=== PATIENT | female | born 1955 | race Caucasian/White ===

== ENCOUNTER 2017-03-08 09:53 | Inpatient (IN) | payer MEDICAID, OTHER ==
[~2017-03-08] VITALS: Ht 152.4 cm; Wt 86.7 kg
[2017-03-08] MEDS ORDERED: AMLO2.5T PO (10:50)
[2017-03-08] MEDS ORDERED: CETI10 PO (10:50)
[2017-03-08] MEDS ORDERED: LOVA20TA PO (10:50)
[2017-03-08] MEDS ORDERED: TERA2CAP3 PO (10:50)
[2017-03-08] MEDS ORDERED: BISO10TA2 PO (10:50)
[2017-03-19] VITALS (10 sets, daily range): BP systolic 154–160; BP diastolic 84–90; PULSE 59–78; RESP 16–18; TEMP 97.7–98.4; O2SAT 94–99
[2017-03-19] MEDS ORDERED: HEPARIN SODIUM - SQ 10,000 UNITS/ML VIAL ONE (07:05)
[2017-03-19] MEDS ORDERED: THROMBIN (TOPICAL) 20,000 UNIT SPRAY KIT ONE (07:05)
[2017-03-19] MEDS ORDERED: HEPARIN SODIUM - IV 10,000 UNITS/10 ML VIAL ONE (07:05)
[2017-03-19] MEDS ORDERED: PROTAMINE SULFATE 50 MG/5 ML VIAL ONE (07:06)
[2017-03-19] MEDS ORDERED: ceFAZolin 2 GM PREMIX 50 ML ONE (07:06)
[2017-03-19] MEDS ORDERED: INSULIN HUMAN REGULAR 1,000 UNITS/10 ML VIAL SQ PRN (07:15)
[2017-03-19] MEDS ORDERED: CHLORHEXIDINE GLUCONATE 2 % 1 PACK (2 CLOTHS) TOPICAL PRN (07:15)
[2017-03-19] MEDS ORDERED: LACTATED RINGER'S 1000 ML IV PRN (07:15)
[2017-03-19] MEDS ORDERED: SODIUM CHLORID 0.9% 500 ML IV PRN (07:15)
[2017-03-19] MEDS ORDERED: METOPROLOL TARTRATE 25 MG TAB PO PRN (07:15)
[2017-03-19] MEDS ORDERED: POVIDONE IODINE 5% (ANTISEPSIS KIT) 4 APPLICATIONS EACH NARE PRN (07:15)
[2017-03-19] MEDS ORDERED: COEN1CAP10 PO (07:21)
[2017-03-19] MEDS ORDERED: POTA99TA PO (07:21)
[2017-03-19] MEDS ORDERED: MULTCAP PO (07:21)
[2017-03-19] MEDS ORDERED: MAGN250T3 PO (07:21)
--- NOTE | 2017-03-19 08:07 | PD.VS.PN ---
Pre-operative Note Pre-operative diagnosis: L LE rest pain, PAD Planned procedure: L groin reconstruction, angiogram/stents Interval History: Pt has been feeling well since I saw her in clinic. No F/C/N/V Labs: Hct 41 plt 185 cr 0.8 Blood: T&S Imaging: to be made in OR Orders: NPO Ancef 2g IV OCTOR Post-operative destination: PACU, [facility] Operative site marked: Yes Consent: Informed consent has been obtained from Dunia Moran. I have explained the procedure in detail and discussed the risks, benefits, and potential complications. All questions have been answered. Iam Messina MD March 19, 2017 08:07
[2017-03-19] MEDS ORDERED: FAMOTIDINE 20 MG/2 ML VIAL ONE (08:12)
[2017-03-19] MEDS ORDERED: MIDAZOLAM HCL 2 MG/2 ML VIAL ONE (08:12)
[2017-03-19] MEDS ORDERED: IOHEXOL 300 MG/ML 50 ML BTL (for RAD DIAG) OTHER ONE (09:26)
--- NOTE | 2017-03-19 11:12 | HHI.PR ---
Immediate Post Op Note Procedure Date: March 19, 2017 Pre Op Diagnosis: PAD, L LE rest pain Post Op Diagnosis: PAD, L LE rest pain Surgeon: Iam Messina Equipment Operator [employer] Yard(s): none Procedure: L iliofemoral endarterectomy w/ patch angioplasty Aortogram Findings: very diseased [employer]UR[employer]ER, occluded SFA but 2 patent profundas no HD significant iliac inflow lesions Complications: none Specimen(s) removed: none for pathology Estimated blood loss: 100mL Anesthesia: General Drains: None Fluids: 1200mL x'oid; 300 mL UOP IVF Patient to: PACU Patient Condition: Good Implant/Devices: SEE IMPLANT LOG (if applicable) Date/Time of Procedure: SEE SURGICAL CARE RECORD Iam Messina MD March 19, 2017 11:12
[2017-03-19] MEDS ORDERED: MORPHINE SULFATE 4 MG/ML INJ IV PRN (11:15)
[2017-03-19] MEDS ORDERED: HYDROmorphone HCL 2 MG TAB PO PRN ×2 (11:15)
[2017-03-19] MEDS ORDERED: DO NOT ADM ANY ANTICOAGULANT DRUGS PRN (11:20)
[2017-03-19] MEDS ORDERED: fentaNYL CITRATE 250 MCG/5 ML AMP ONE (11:25)
[2017-03-19] MEDS ORDERED: *morphine SULFATE 8 MG/ML PERIprocedure ONLY ONE (11:54)
[2017-03-19] MEDS ORDERED: PROPOFOL 200 MG/20 ML AMP IV ONE (12:00)
[2017-03-19] MEDS ORDERED: ePHEDrine/NS 25 MG/5 ML SYR IV ONE (12:00)
[2017-03-19] MEDS ORDERED: LACTATED RINGER'S 1000 ML INJ 1,000 ML IV ONE (12:00)
[2017-03-19] MEDS ORDERED: IOHEXOL 300 MG/ML 50 ML BTL (for RAD DIAG) ONE (12:00)
[2017-03-19] MEDS ORDERED: ONDANSETRON HCL 4 MG/2 ML VIAL IV PUSH ONE (12:00)
[2017-03-19] MEDS: LACTATED RINGER'S 1000 ML INJ 1,000 ML IV SCH (14:30)
--- NOTE | 2017-03-19 15:55 | PD.VS.PN ---
Subjective POD #: 0 Procedure(s): L groin reconstruction, angiogram Subjective/Hospital Course doing well, pain controlled foot already feels better no nausea does crave a cigarette Objective Vitals/I&O Date Time Temp Pulse Resp B/P Pulse Ox O2 Delivery O2 Flow Rate FiO2 03/19/17 14:00 66 16 158/75 95 Room Air 03/19/17 13:30 64 16 146/70 95 Room Air 03/19/17 13:00 60 16 143/73 98 03/19/17 12:30 62 16 136/72 98 Nasal Cannula 2 03/19/17 12:15 62 16 135/81 97 Nasal Cannula 2 03/19/17 12:00 64 16 138/72 96 Nasal Cannula 2 03/19/17 11:45 62 16 145/70 96 Nasal Cannula 2 03/19/17 11:30 64 16 138/66 95 Nasal Cannula 2 03/19/17 11:23 97.4 66 16 139/83 94 Nasal Cannula 2 03/19/17 07:22 98.4 63 16 154/84 99 03/19/17 03/19/17 03/19/17 06:59 14:59 22:59 Intake Total 50 ml Output Total 250 ml Balance -200 ml Exam: L groin vac in place, minimal output L foot warm Laboratory Laboratory Tests Test 03/19/17 07:05 Blood Type O POSITIVE Antibody Screen NEGATIVE Blood Bank Comment Assessment and Plan Plan 1. D/C Al in a.m. 2. HL IVF in a.m. 3. Tobacco cessation counseling / transdermal replacement if needed Discharge Planning likely 1-2 days Iam Messina MD March 19, 2017 15:55
[2017-03-19] MEDS: REMOVE OLD PATCH T-DERMAL SCH (21:00)
[2017-03-19] MEDS: DOCUSATE SODIUM 100 MG CAP PO SCH (21:00)
[2017-03-19] MEDS: ATORVASTATIN 40 MG TAB PO SCH (21:00)
[2017-03-19] MEDS: TERAZOSIN HCL 1 MG CAP PO SCH (21:57)
[2017-03-19] MEDS: amLODIPine BESYLATE 5 MG TAB PO SCH (21:58)
[2017-03-20] VITALS (29 sets, daily range): BP systolic 120–146; BP diastolic 74–86; PULSE 60–90; RESP 16–18; TEMP 97.9–99.4; O2SAT 94–97
[2017-03-20 05:15] LABS: HEMATOCRIT 40.7 % (35.0-46.0); MEAN CELL VOLUME 88.9 FL (80.0-100.0); MEAN CORPUSCULAR HEMOGLOBIN 29.7 PG (27.0-34.0); MEAN CORPUSCULAR HGB CONC 33.4 % (32.0-36.0); PLATELET COUNT 157 TH/MM3 (150-450); RED BLOOD COUNT 4.58 MIL/MM3 (4.00-5.30); RED CELL DISTRIBUTION WIDTH 13.6 % (11.6-17.2); REVIEW FLAG FINAL; WHITE BLOOD COUNT 14.1 TH/MM3 (4.0-11.0)
[2017-03-20 05:49] LABS: BICARBONATE 29.4 MEQ/L (21.0-32.0); POTASSIUM 3.9 MEQ/L (3.5-5.1)
[2017-03-20] MEDS: DOCUSATE SODIUM 100 MG CAP PO SCH ×2 (09:00→20:52)
[2017-03-20] MEDS: ASPIRIN 81 MG CHEW TAB PO SCH (09:00)
[2017-03-20] MEDS: NICOTINE 7 MG/24 HR PATCH T-DERMAL SCH (09:00)
[2017-03-20] MEDS ORDERED: REMOVE OLD PATCH T-DERMAL SCH (09:00)
--- NOTE | 2017-03-20 09:53 | MP ---
cc: MARINA MESSINA MD DATE OF SURGERY 03/19/17 PREOPERATIVE DIAGNOSIS Left lower extremity rest pain, peripheral arterial occlusive disease. POSTOPERATIVE DIAGNOSIS Left lower extremity rest pain, peripheral arterial occlusive disease. PROCEDURE 1. Left iliofemoral endarterectomy with patch angioplasty. 2. Aortogram. ATTENDING SURGEON Marina Messina MD ANESTHESIA General. INDICATIONS Ms. Moran is a 61-year-old lady with peripheral arterial occlusive disease and ABIs consistent with moderate peripheral vascular disease and rest pain by symptomatology. Preoperative imaging suggests she has an aorta iliac disease as well as common femoral disease. I had a long discussion with the patient and her family and offered a groin reconstruction and potential iliac intervention. DESCRIPTION OF PROCEDURE Informed consent was obtained from the patient. She was taken to the operating room and placed supine on the operating room table. An appropriate time-out was taken to ensure the patient's identity, the operative site and the planned procedure. Please note there is no prior catheterization imaging available for my review. Everyone in the room agreed with the time-out and we proceeded. She was prepped from her nipples to her toes and a vertical incision made in the patient's left groin, carried down to subcutaneous tissue with electrocautery. The common femoral artery was identified. Two large profunda branches were identified and dissected free as well as several circumflex branches. All of these were carefully protected. We dissected around the external iliac artery and placed a vessel loop around this. The SFA was also dissected free and a vessel loop was placed around the SFA and profunda. The patient was subsequently heparinized and throughout the remainder of the case the ACTs confirmed to be greater than 250. Proximal and distal control of the iliac artery and profunda and SFA were obtained and the side branches were controlled with 2-0 silk ties that were used in a Pott's fashion. A longitudinal arteriotomy was made with an 11 blade extended with Kang scissors. The artery was endarterectomized without difficulty and a nice endpoint was encountered. Backbleeding was obtained from all the side branches including the SFA. A bovine pericardial patch was brought upon the field and sewn on with running 5-0 Prolene suture. At the completion it was flushed and hemostatic. There was nice pulse in the graft and Doppler signals in side branches. A 21-gauge micropuncture needle was used to access the patches. This was exchanged using Seldinger technique for a micropuncture sheath through which a 0.025 Storq wire was introduced. The micropuncture sheath was exchanged for a 5-Nauruan sheath and a VCF catheter was placed over the wire into the sheath and the aortogram was obtained. The aortogram showed patent aorta iliac segments, a diseased left hypogastric artery but a patent external iliac artery. There was no hemodynamically significant stenoses. The wire catheter and sheath were removed. The patchotomy was closed with a 6-0 Prolene suture. The wound was irrigated, made hemostatic. The heparin was reversed with protamine. The wound was closed with 2-0 Polysorb, 3-0 Polysorb and 4-0 Monocryl. Sponge and needle counts were correct at the end of the case. I was present and scrubbed and performed the entire procedure. MD RADHA Koch/EFREN /11:23 AM /9:30 AM KADIE
[2017-03-20] MEDS: CETIRIZINE HCL 10 MG TAB PO SCH (09:55)
[2017-03-20] MEDS: amLODIPine BESYLATE 5 MG TAB PO SCH ×2 (09:55→20:51)
[2017-03-20] MEDS: PANTOPRAZOLE SOD 40 MG DELAYED RELEASE TAB PO SCH (09:55)
[2017-03-20] MEDS: ENOXAPARIN SODIUM 40 MG/0.4 ML SYRINGE SQ SCH (09:56)
[2017-03-20] MEDS: LACTATED RINGER'S 1000 ML INJ 1,000 ML IV SCH (09:58)
--- NOTE | 2017-03-20 11:28 | PD.VS.PN ---
Subjective POD #: 1 Procedure(s): L groin reconstruction, angiogram Subjective/Hospital Course Pt sitting in chair Pain controlled pt w/o complaints Objective Vitals/I&O Date Time Temp Pulse Resp B/P Pulse Ox O2 Delivery O2 Flow Rate FiO2 03/20/17 07:00 73 03/20/17 06:00 64 03/20/17 05:00 64 03/20/17 04:00 97.9 66 18 146/86 94 03/20/17 04:00 63 03/20/17 03:00 64 03/20/17 02:00 64 03/20/17 01:00 60 03/20/17 00:00 62 03/20/17 00:00 98.0 62 18 120/74 94 03/19/17 23:00 60 03/19/17 22:00 78 03/19/17 21:00 74 03/19/17 20:00 97.7 70 18 160/90 94 03/19/17 20:00 71 03/19/17 19:00 74 03/19/17 18:16 67 03/19/17 17:00 66 03/19/17 16:00 65 03/19/17 15:02 59 03/19/17 14:00 66 16 158/75 95 Room Air 03/19/17 13:30 64 16 146/70 95 Room Air 03/19/17 13:00 60 16 143/73 98 03/19/17 12:30 62 16 136/72 98 Nasal Cannula 2 03/19/17 12:15 62 16 135/81 97 Nasal Cannula 2 03/19/17 12:00 64 16 138/72 96 Nasal Cannula 2 03/19/17 11:45 62 16 145/70 96 Nasal Cannula 2 03/19/17 11:30 64 16 138/66 95 Nasal Cannula 2 03/19/17 11:23 97.4 66 16 139/83 94 Nasal Cannula 2 Exam: GENERAL: A&OX3, NAD, GCS15, pleasant 61/F SKIN: Warm and dry. Wound vac to L groin intact/No hematoma NECK: Supple, No JVD CARDIOVASCULAR: +S1,S2, RRR RESPIRATORY: Breath sounds equal bilaterally. No accessory muscle use. GASTROINTESTINAL: S/NT MUSCULOSKELETAL: No cyanosis, or edema. bilat feet warm w/ motor intact + right/left DP/PT triphasic signals heard via Doppler Pulses: + DP/PT (R/L) Incisions: L wound vac intact no hematoma Laboratory Laboratory Tests Test 03/20/17 04:33 White Blood Count 14.1 Red Blood Count 4.58 Hemoglobin 13.6 Hematocrit 40.7 Mean Corpuscular Volume 88.9 Mean Corpuscular Hemoglobin 29.7 Mean Corpuscular Hemoglobin 33.4 Concent Red Cell Distribution Width 13.6 Platelet Count 157 Mean Platelet Volume 10.2 Sodium Level 141 Potassium Level 3.9 Chloride Level 104 Carbon Dioxide Level 29.4 Anion Gap 8 Blood Urea Nitrogen 10 Creatinine 0.68 Estimat Glomerular Filtration 87 Rate Random Glucose 106 Calcium Level 9.0 Assessment and Plan Plan Plan PT/OOB D/C MIVF Continue pain management Yamini LANGSTON [facility]/[place] [phone] Discharge Planning tomorrow Yamini Domingo March 20, 2017 11:28
[2017-03-20] MEDS ORDERED: ACETAMINOPHEN 325 MG TAB PO PRN (16:00)
[2017-03-20] MEDS: TERAZOSIN HCL 1 MG CAP PO SCH (20:52)
[2017-03-20] MEDS: ATORVASTATIN 40 MG TAB PO SCH (20:52)
[2017-03-20] MEDS: REMOVE OLD PATCH T-DERMAL SCH (20:52)
[2017-03-21] VITALS (13 sets, daily range): BP systolic 127–139; BP diastolic 68–73; PULSE 66–94; RESP 16–18; TEMP 98.1–99; O2SAT 95–96
[2017-03-21] MEDS: ASPIRIN 81 MG CHEW TAB PO SCH (08:30)
[2017-03-21] MEDS: ENOXAPARIN SODIUM 40 MG/0.4 ML SYRINGE SQ SCH (08:30)
[2017-03-21] MEDS: DOCUSATE SODIUM 100 MG CAP PO SCH (08:30)
[2017-03-21] MEDS: CETIRIZINE HCL 10 MG TAB PO SCH (08:31)
[2017-03-21] MEDS: amLODIPine BESYLATE 5 MG TAB PO SCH (08:31)
[2017-03-21] MEDS: PANTOPRAZOLE SOD 40 MG DELAYED RELEASE TAB PO SCH (08:32)
[2017-03-21] MEDS: NICOTINE 7 MG/24 HR PATCH T-DERMAL SCH (08:32)
--- NOTE | 2017-03-21 09:27 | PD.VS.DC ---
Discharge Summary Admission Date: March 19, 2017 at 06:22 Discharge Date: March 21, 2017 Admission Diagnosis: (1) PAD (peripheral artery disease) Discharge Diagnosis: (1) PAD (peripheral artery disease) Status: Acute Brief History from admission Pt presented with L LE rest pain for 5 weeks, Hx of PAD Procedure(s): L groin reconstruction, angiogram L iliofemoral endarterectomy w/ patch angioplasty Aortogram Significant Findings GENERAL: A&OX3,NAD, GCS15 SKIN: Warm and dry. L groin incision intact with surgical glue, NO D/S/P, slight erythema noted at the incision line CARDIOVASCULAR: +S1,S2 RESPIRATORY: Breath sounds equal bilaterally. No accessory muscle use. GASTROINTESTINAL: Abdomen S/NT MUSCULOSKELETAL: No cyanosis, or edema. Pt with strong triphasic DP/PT LLE phasic signals DP/PT RLE Bilat feet warm with motor intact Laboratory Tests Test 03/20/17 04:33 White Blood Count 14.1 TH/MM3 (4.0-11.0) Estimat Glomerular Filtration 87 ML/MIN (>89) Rate Hospital Course: Pt presented with worsening LLE pain (rest pain) for 5 weeks L groin reconstruction was done without complications Pt with improved pain Allergies Coded Allergies Type Severity Reaction Last Updated Verified Codeine Allergy Unknown Seizures 03/19/17 Yes Compazine Allergy Unknown Seizures 03/19/17 Yes //////// 05:59 17:59 05:59 17:59 05:59 17:59 Intake Total 50 ml 840 ml 520 ml 240 ml Output Total 250 ml 2450 ml 350 ml 150 ml Balance -200 ml -1610 ml 170 ml 90 ml Intake Oral 840 ml 520 ml 240 ml IV Total 50 ml Output Urine Total 250 ml 2450 ml 350 ml 150 ml Stool Total 0 ml # Voids 5 2 # Bowel Movements 1 Laboratory Tests Test 03/19/17 03/20/17 07:05 04:33 Blood Type O POSITIVE Antibody Screen NEGATIVE Blood Bank Comment White Blood Count 14.1 TH/MM3 Red Blood Count 4.58 MIL/MM3 Hemoglobin 13.6 GM/DL Hematocrit 40.7 % Mean Corpuscular Volume 88.9 FL Mean Corpuscular Hemoglobin 29.7 PG Mean Corpuscular Hemoglobin 33.4 % Concent Red Cell Distribution Width 13.6 % Platelet Count 157 TH/MM3 Mean Platelet Volume 10.2 FL Sodium Level 141 MEQ/L Potassium Level 3.9 MEQ/L Chloride Level 104 MEQ/L Carbon Dioxide Level 29.4 MEQ/L Anion Gap 8 MEQ/L Blood Urea Nitrogen 10 MG/DL Creatinine 0.68 MG/DL Estimat Glomerular Filtration 87 ML/MIN Rate Random Glucose 106 MG/DL Calcium Level 9.0 MG/DL Procedure Category Date Status Time Type And Screen BBK 03/19/17 Complete 06:51 Lactated Ringer's MED 03/19/17 In Process 1000 Ml Inj (Lr 1000 M 07:15 Sodium Chlorid 0.9% MED 03/19/17 In Process 500 Ml Inj (Ns 500 M 07:15 Metoprolol Tartrate MED 03/19/17 In Process (Lopressor) 07:15 Povidone Iod 5% MED 03/19/17 In Process Antisepsis Kit 07:15 Chlorhexidine 2% MED 03/19/17 In Process Cloth (Chlorhexidine 07:15 Insulin Human Regular MED 03/19/17 In Process Inj (Novolin R Inj 07:15 Heparin Inj (Heparin MED 03/19/17 Complete Inj) 07:05 Thrombin Top [place] MED 03/19/17 Complete (Thrombin Top [place]) 07:05 Heparin Inj (Heparin MED 03/19/17 Complete Inj) 07:05 Protamine Sulfate Inj MED 03/19/17 Complete (Protamine Sulfate 07:06 Cefazolin 2 Gm Premix MED 03/19/17 Complete (Ancef 2 Gm Premix 07:06 Famotidine Inj MED 03/19/17 Complete (Pepcid Inj) 08:12 Midazolam Inj (Versed MED 03/19/17 Complete Inj) 08:12 Am Admit Pre Op Care [facility] 03/19/17 Complete Iohexol 300 Inj MED 03/19/17 Complete (Omnipaque 300 Inj) 09:26 Urinary Catheter [facility] 03/19/17 Complete Management 11:01 Admit To Inpatient ADMITTING 03/19/17 Transmitted Code Status CODE 03/19/17 Transmitted 11:12 Vital Signs (Adult) [facility] 03/19/17 In Process 11:12 Skirt Trimmer / KELLY 03/19/17 In Process Telemetry 11:12 Activity Oob Ad Sherrie [facility] 03/20/17 In Process 07:00 Activity Bed Rest [facility] 03/19/17 In Process 11:[address] Matthew [facility] 03/19/17 In Process 11:12 ^ Precautions KE[facility] 03/19/17 In Process 11:12 ^ Vac Dressing To Be [facility]LLY 03/19/17 In Process Used 11:12 Diet Heart Healthy DIET 03/19/17 Transmitted Lunch Basic Metabolic Panel LAB 03/20/17 Complete (Bmp) 06:00 Cbc No Diff, Includes LAB 03/20/17 Complete Plts 06:00 Consult Pt Eval & PT 03/19/17 Logged Treat 11:12 Lactated Ringer's MED 03/19/17 In Process 1000 Ml Inj (Lr 1000 M 11:12 Aspirin Chew (Aspirin MED 03/20/17 In Process Chew) 09:00 Pantoprazole MED 03/20/17 In Process (Protonix) 09:00 Atorvastatin (Lipitor) MED 03/19/17 In Process 21:00 Hydromorphone MED 03/19/17 In Process (Dilaudid) 11:15 Morphine Inj MED 03/19/17 In Process (Morphine Inj) 11:15 Docusate Sodium MED 03/19/17 In Process (Colace) 21:00 Inpatient ADMITTING 03/19/17 Transmitted Certification Hydromorphone MED 03/19/17 In Process (Dilaudid) 11:15 Amlodipine (Norvasc) MED 03/19/17 In Process 21:00 Cetirizine (Zyrtec) MED 03/20/17 In Process 09:00 Terazosin (Hytrin) MED 03/19/17 In Process 21:00 Urinary Catheter - [place] 03/20/17 Transmitted Remove 07:00 Fentanyl Inj MED 03/19/17 Complete (Fentanyl Inj) 11:25 *Morphine Inj MED 03/19/17 Complete (*Morphine Inj 11:54 Misc Nursing MED 03/19/17 Complete Information 11:20 Enoxaparin Inj MED 03/20/17 In Process (Lovenox Inj) 10:00 Class [facility] Complete MIN [facility] 03/[facility]17 Complete Post [facility]est[facility]17 Complete Pacu [facility] 03/19/17 Complete Hourly ^ Smoking Cessation [facility] 03/19/17 In Process Counseling 15:55 Nicotine 7 Mg MED 03/20/17 In Process Patch.24 Hr (Habitrol 09:00 Remove Old Patch MED 03/19/17 In Process 21:00 Consult Pt Eval & Tx PT 03/20/17 Complete OOB 11:20 Acetaminophen MED 03/20/17 In Process (Tylenol) 16:00 Attending Discharge DISCHARGE 03/21/17 Transmitted Order Vital Signs Date Time Temp Pulse Resp B/P Pulse Ox O2 Delivery O2 Flow Rate FiO2 03/21/17 06:00 91 03/21/17 05:17 91 03/21/17 04:35 98.1 94 16 139/68 96 03/21/17 04:00 94 03/21/17 03:00 66 03/21/17 02:00 68 03/21/17 01:00 68 03/21/17 00:16 99.0 73 16 127/73 95 03/21/17 00:00 66 03/20/17 23:00 66 03/20/17 22:00 68 03/20/17 21:00 90 03/20/17 20:55 99.1 79 16 144/80 97 03/20/17 20:00 66 03/20/17 19:00 61 03/20/17 18:03 63 03/20/17 18:00 64 03/20/17 17:07 76 03/20/17 17:00 70 03/20/17 16:54 76 03/20/17 16:08 99.4 71 16 145/80 97 03/20/17 16:00 68 03/20/17 15:34 99.4 03/20/17 15:00 68 03/20/17 14:00 66 03/20/17 13:01 67 03/20/17 12:00 98.7 69 18 140/76 95 03/20/17 12:00 67 03/20/17 11:00 68 03/20/17 09:00 68 03/20/17 08:00 72 03/20/17 07:00 73 03/20/17 06:00 64 03/20/17 05:00 64 03/20/17 04:00 97.9 66 18 146/86 94 03/20/17 04:00 63 03/20/17 03:00 64 03/20/17 02:00 64 03/20/17 01:00 60 03/20/17 00:00 62 03/20/17 00:00 98.0 62 18 120/74 94 03/19/17 23:00 60 03/19/17 22:00 78 03/19/17 21:00 74 03/19/17 20:00 97.7 70 18 160/90 94 03/19/17 20:00 71 03/19/17 19:00 74 03/19/17 18:16 67 03/19/17 17:00 66 03/19/17 16:00 65 03/19/17 15:02 59 03/19/17 14:00 66 16 158/75 95 Room Air 03/19/17 13:30 64 16 146/70 95 Room Air 03/19/17 13:00 60 16 143/73 98 03/19/17 12:30 62 16 136/72 98 Nasal Cannula 2 03/19/17 12:15 62 16 135/81 97 Nasal Cannula 2 03/19/17 12:00 64 16 138/72 96 Nasal Cannula 2 03/19/17 11:45 62 16 145/70 96 Nasal Cannula 2 03/19/17 11:30 64 16 138/66 95 Nasal Cannula 2 03/19/17 11:23 97.4 66 16 139/83 94 Nasal Cannula 2 03/19/17 07:22 98.4 63 16 154/84 99 Discharge Condition: Good Discharge Disposition: Discharge Home Discharge Instructions: Pt MAY take a shower, then pat dry incision NO TUB BATHS while incision is healing Activities as tolerated Do not apply creams or lotions to l groin incision Call the office to report any increased redness, drainage, swelling or warmth to incision site RTC at your scheduled appointment time 04/13/17 Yamini LANGSTON [facility]/[place] [phone] Any questions or concerns: Call [facility] V[facility] Surgery at [facility] [phone] Yamini Diehl March 21, 2017 09:27
--- NOTE | 2017-03-21 09:31 | PD.VS.PN ---
Subjective POD #: 2 Procedure(s): L groin reconstruction, angiogram L iliofemoral endarterectomy w/ patch angioplasty Aortogram Subjective/Hospital Course Pt w/o complaints Improved pain per patient Pt walked with PT w/o difficulty Removed wound vac to L groin (Yamini Diehl) Objective Vitals/I&O Date Time Temp Pulse Resp B/P Pulse Ox O2 Delivery O2 Flow Rate FiO2 03/21/17 06:00 91 03/21/17 05:17 91 03/21/17 04:35 98.1 94 16 139/68 96 03/21/17 04:00 94 03/21/17 03:00 66 03/21/17 02:00 68 03/21/17 01:00 68 03/21/17 00:16 99.0 73 16 127/73 95 03/21/17 00:00 66 03/20/17 23:00 66 03/20/17 22:00 68 03/20/17 21:00 90 03/20/17 20:55 99.1 79 16 144/80 97 03/20/17 20:00 66 03/20/17 19:00 61 03/20/17 18:03 63 03/20/17 18:00 64 03/20/17 17:07 76 03/20/17 17:00 70 03/20/17 16:54 76 03/20/17 16:08 99.4 71 16 145/80 97 03/20/17 16:00 68 03/20/17 15:34 99.4 03/20/17 15:00 68 03/20/17 14:00 66 03/20/17 13:01 67 03/20/17 12:00 98.7 69 18 140/76 95 03/20/17 12:00 67 03/20/17 11:00 68 Pulses: PT/DP L with triphasic signals Incisions: intact with surgical glue NO D/S (Yamini Diehl) Assessment and Plan Assessment: (1) PAD (peripheral artery disease) Status: Acute Plan Plan D/C today Pt will f/u in our OPC in 2-3 w Yamini LANGSTON [facility]/[place] [phone] Discharge Planning today (Yamini Diehl) Plan I agree with above a/p after examining the patient. Minimal to no pain and notes her foot feels better. Jani Owens DO, FACS Partnership Development Manager of Vascular Surgery /[place] (Jani Owens DO) Yamini Diehl March 21, 2017 09:31 Jani Owens DO March 21, 2017 09:37
[2017-04-20] MEDS ORDERED: AMOX500C PO (10:21)
[2017-04-20] MEDS ORDERED: NYST100084 TOPICAL (10:43)
[2017-04-20] MEDS ORDERED: CEPH-460 PO (11:32)
== END 2017-03-21 10:48 | disposition home or self-care (01) | DRG 272 ==
LOC: EDUNIT# 03-12 08:30 → HSDI 03-19 06:22 → HCIS 03-19 14:31
PROVIDERS: ADMIT Surgery; ATTEND Surgery
PROC: 04UL0KZ Supplement Left Femoral Artery with Nonautologous Tissue Substitute, Open Approach (ICD-10-PCS; 2017-03-19)
PROC: B40DYZZ Plain Radiography of Aorta and Bilateral Lower Extremity Arteries using Other Contrast (ICD-10-PCS; 2017-03-19)
PROC: 04CJ0ZZ Extirpation of Matter from Left External Iliac Artery, Open Approach (ICD-10-PCS; principal; 2017-03-19 08:30)
PROC: 04CL0ZZ Extirpation of Matter from Left Femoral Artery, Open Approach (ICD-10-PCS; 2017-03-19 08:30)
DX: I73.9 Peripheral vascular disease, unspecified (principal); E66.9 Obesity, unspecified; I10 Essential (primary) hypertension; E78.5 Hyperlipidemia, unspecified; F17.210 Nicotine dependence, cigarettes, uncomplicated; I25.10 Atherosclerotic heart disease of native coronary artery without angina pectoris; I25.2 Old myocardial infarction; I69.198 Other sequelae of nontraumatic intracerebral hemorrhage; Z68.37 Body mass index [BMI] 37.0-37.9, adult; Z88.5 Allergy status to narcotic agent
CPT/HCPCS: 75625; 80048; 85027; 86850; 86900; 86901; C1769; J0690; J1644; J2250; J2270; J2405; J2720; J3010; J7120; Q9967

== ENCOUNTER → 2017-03-08 | Outpatient (CLI) | payer OTHER, MEDICAID ==
[~2017-03-08] MED LIST: AMLO2.5T PO; AMOX500C PO; BISO10TA2 PO; CEPH-460 PO; CETI10 PO; COEN1CAP10 PO; LOVA20TA PO; MAGN250T3 PO; MULTCAP PO; NYST100084 TOPICAL; POTA99TA PO; TERA2CAP3 PO
[2017-03-08 11:12] LABS: AUTOMATED NEUTROPHIL # 6.3 TH/MM3 (1.8-7.7); BASOPHIL # 0.1 TH/MM3 (0-0.2); BASOPHIL % 0.7 % (0.0-2.0); EOSINOPHIL # 0.2 TH/MM3 (0-0.4); EOSINOPHIL % 1.5 % (0.0-4.0); HEMATOCRIT 41.4 % (35.0-46.0); HEMO FLAGS DIFF FINAL; LYMPH % 28.8 % (9.0-44.0); MEAN CELL VOLUME 89.3 FL (80.0-100.0); MEAN CORPUSCULAR HEMOGLOBIN 30.9 PG (27.0-34.0); MEAN CORPUSCULAR HGB CONC 34.6 % (32.0-36.0); MONO % 7.5 % (0.0-8.0); NEUT % 61.5 % (16.0-70.0); PLATELET COUNT 185 TH/MM3 (150-450); RED BLOOD COUNT 4.64 MIL/MM3 (4.00-5.30); RED CELL DISTRIBUTION WIDTH 13.7 % (11.6-17.2); WHITE BLOOD COUNT 10.3 TH/MM3 (4.0-11.0)
[2017-03-08 11:17] LABS: PROTHROMBIN TIME - PATIENT 10.9 SEC (9.8-11.6)
[2017-03-08 11:23] LABS: BACTERIA, URINE RARE /hpf; BLOOD, URINE NEG (NEG); COMMENT (UR) CULT NOT INDICATED; CULTURE IF INDICATED CULT NOT INDICATED; GLUCOSE,URINE NEG (NEG); KETONE, URINE NEG (NEG); NITRITE,URINE NEG (NEG); SQUAMOUS EPITHELIAL CELL URINE 2 /hpf (0-5); URINE COLOR YELLOW (YELLW/STRAW)
--- NOTE | 2017-03-08 11:32 | RADRPT ---
EXAM DATE/TIME: 03/08/2017 11:14 [place] COMPARISON: No previous studies available for comparison. INDICATIONS : Evaluate for pneumonia, pneumothorax or communicable disease. Pre op for left groin reconstruction 03-12-17 MEDICAL HISTORY : None. SURGICAL HISTORY : None. ENCOUNTER: Initial ACUITY: 1 day PAIN SCORE: 0/10 LOCATION: Bilateral chest FINDINGS: PA and lateral views of the chest demonstrate the lungs to be symmetrically aerated without evidence of mass, infiltrate or effusion. The cardiomediastinal contours are unremarkable. Osseous structure s are intact. Scoliotic curvature. CONCLUSION: No acute disease. Jose R Prabhakar Jr., MD on March 08, 2017 at 11:29 Board Certified Radiologist. This report was verified electronically.
[2017-03-08 11:36] LABS: BICARBONATE 29.4 MEQ/L (21.0-32.0); POTASSIUM 3.9 MEQ/L (3.5-5.1)
--- NOTE | 2017-03-08 18:46 | EKG ---
Date Performed: 03/08/2017 Time Performed: 10:19:18 PTAGE: 61 years EKG: Sinus rhythm POSSIBLE INFERIOR MYOCARDIAL INFARCTION, PROBABLY OLD BORDERLINE ECG NO PREVIOUS TRACING DOCTOR: Lawrence Ray Interpretating Date/Time 03/08/2017 18:43:23
== END ==
LOC: CPRE 09:49
PROVIDERS: ATTEND Surgery
DX: Z01.810 Encounter for preprocedural cardiovascular examination (principal); Z01.812 Encounter for preprocedural laboratory examination; I73.9 Peripheral vascular disease, unspecified; R94.31 Abnormal electrocardiogram [ECG] [EKG]
CPT/HCPCS: 36415; 71020; 80048; 81001; 85025; 85610; 93005